=== PATIENT | male | born 1985 | race African-American/Black ===

== ENCOUNTER 2017-12-19 10:10 | Emergency (ER) | payer OTHER ==
[~2017-12-19] VITALS: Ht 182.9 cm; Wt 81.7 kg
[2017-12-19 11:00] LABS: HEMATOCRIT 47.3 % (42.0-52.0); HEMOGLOBIN 15.7 gm/dL (14.0-18.0); MCH 26.6 pg (26.0-34.0); MCHC 33.2 g/dL (28.0-37.0); MCV 80.2 fL (80.0-100.0); PLATELET COUNT 160 thou/uL (150-400); RBC 5.89 mil/uL (4.50-6.00); RDW 14.2 % (10.5-14.5); WBC 4.1 thou/uL (4.0-11.0)
[2017-12-19 11:06] LABS: CREATININE 1.2 mg/dL (0.7-1.3); POTASSIUM 4.5 mmol/L (3.5-5.1)
[2017-12-19 11:17] LABS: ABSOLUTE NEUTROPHILS 2.5 thou/uL (1.4-8.2)
[2017-12-19 11:18] LABS: ANISOCYTOSIS SLIGHT
== END 2017-12-19 11:41 | disposition home or self-care (01) ==
LOC: ER 10:10
PROVIDERS: Emergency Medicine
DX: B34.9 Viral infection, unspecified (principal); Z88.0 Allergy status to penicillin

== ENCOUNTER 2018-02-26 09:53 | Emergency (ER) | payer OTHER ==
[~2018-02-26] VITALS: Ht 182.9 cm; Wt 83.9 kg
--- NOTE | ~2018-02-26 | EKG ---
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
[2018-02-26] MEDS ORDERED: PROAIR HFA8.5 GM (10:02)
[2018-02-26 10:51] LABS: ABSOLUTE NEUTROPHILS 3.2 thou/uL (1.4-8.2); BASOPHILS 1.4 % (0.0-2.0); EOSINOPHILS 1.4 % (0.0-3.0); HEMATOCRIT 43.8 % (42.0-52.0); HEMOGLOBIN 14.4 gm/dL (14.0-18.0); LYMPHOCYTES 37.1 % (24.0-44.0); MCV 81.9 fL (80.0-100.0); MONOCYTES 6.4 % (1.0-8.0); PLATELET COUNT 182 thou/uL (150-400); POLYS 53.7 % (36.0-66.0); RBC 5.35 mil/uL (4.50-6.00); RDW 14.6 % (10.5-14.5); WBC 5.9 thou/uL (4.0-11.0)
[2018-02-26 11:00] LABS: ANION GAP 5 mmol/L (7-16); BUN 17 mg/dL (7-18); CALCIUM 8.8 mg/dL (8.5-10.1); CHLORIDE 105 mmol/L (98-107); CO2 30 mmol/L (21-32); CREATININE 0.9 mg/dL (0.7-1.3); GLUCOSE 88 mg/dL (74-106); POTASSIUM 3.9 mmol/L (3.5-5.1); SODIUM 140 mmol/L (136-145)
[2018-02-26 11:08] LABS: MAGNESIUM 1.7 mg/dL (1.8-2.4); SGOT 23 U/L (15-37); SGPT 36 U/L (30-65); TOTAL BILIRUBIN 0.3 mg/dL (<0.1-1.0); TOTAL PROTEIN 6.1 g/dL (6.4-8.2); TROPONIN-I < 0.04 ng/mL (<0.06)
[2018-02-26] MEDS ORDERED: ATIVAN0.5 MG PO (11:28)
[2018-02-26 12:11] VITALS: BP 126/74
== END 2018-02-26 12:13 | disposition home or self-care (01) ==
LOC: ER 09:53
PROVIDERS: Emergency Medicine
DX: J45.909 Unspecified asthma, uncomplicated (principal); F41.9 Anxiety disorder, unspecified; F17.210 Nicotine dependence, cigarettes, uncomplicated; Z88.0 Allergy status to penicillin

== ENCOUNTER 2019-01-23 12:01 | Emergency (ER) | payer OTHER ==
[~2019-01-23] VITALS: Ht 182.9 cm; Wt 97.1 kg
[~2019-01-23 12:01] MED LIST: ATIVAN0.5 MG PO; PROAIR HFA8.5 GM
[2019-01-23 13:07] LABS: URINE BILIRUBIN NEGATIVE (Negative); URINE BLOOD NEGATIVE (Negative); URINE CLARITY CLEAR; URINE COLOR YELLOW; URINE GLUCOSE-RANDOM* NEGATIVE (Negative); URINE KETONES NEGATIVE (Negative); URINE LEUKOCYTES-REFLEX NEGATIVE (Negative); URINE NITRITE-REFLEX NEGATIVE (Negative); URINE PROTEIN (DIPSTICK) NEGATIVE (Negative); URINE UROBILINOGEN 0.2 E.U./dl (0.2-1.0)
[2019-01-23 13:57] LABS: BASOPHILS 0.9 % (0.0-2.0); EOSINOPHILS 1.2 % (0.0-3.0); HEMATOCRIT 46.4 % (42.0-52.0); HEMOGLOBIN 15.3 gm/dL (14.0-18.0); LYMPHOCYTES 36.9 % (24.0-44.0); MCH 26.6 pg (26.0-34.0); MCHC 32.9 g/dL (28.0-37.0); MCV 80.9 fL (80.0-100.0); MONOCYTES 7.1 % (1.0-8.0); PLATELET COUNT 207 thou/uL (150-400); POLYS 53.9 % (36.0-66.0); RBC 5.73 mil/uL (4.50-6.00); RDW 14.5 % (10.5-14.5); WBC 5.6 thou/uL (4.0-11.0)
[2019-01-23 14:04] LABS: CALCIUM 9.1 mg/dL (8.5-10.1); CREATININE 0.9 mg/dL (0.7-1.3)
[2019-01-23 14:09] LABS: ALBUMIN 3.4 g/dL (3.4-5.0); TOTAL BILIRUBIN 0.3 mg/dL (<0.1-1.0)
[2019-01-23 14:17] VITALS: BP 125/84
[2019-01-23] MEDS ORDERED: NORFLEX100 MG PO (14:21)
[2019-01-23] MEDS ORDERED: NAPROSYN500 MG PO (14:21)
== END 2019-01-23 14:30 | disposition home or self-care (01) ==
LOC: ER 12:01
PROVIDERS: Emergency Medicine; Physician Assistant
DX: S39.012A Strain of muscle, fascia and tendon of lower back, initial encounter (principal); R10.9 Unspecified abdominal pain; F41.9 Anxiety disorder, unspecified; J45.909 Unspecified asthma, uncomplicated; Z88.0 Allergy status to penicillin; V89.2XXA Person injured in unspecified motor-vehicle accident, traffic, initial encounter; Y93.89 Activity, other specified; Y92.89 Other specified places as the place of occurrence of the external cause; Y99.8 Other external cause status

== ENCOUNTER 2019-12-03 11:34 | Emergency (ER) | payer OTHER ==
[~2019-12-03] VITALS: Ht 182.9 cm; Wt 97.5 kg
[~2019-12-03 11:34] MED LIST changes: +NAPROSYN500 MG PO; +NORFLEX100 MG PO
[2019-12-03 11:51] LABS: URINE BILIRUBIN NEGATIVE (Negative); URINE BLOOD NEGATIVE (Negative); URINE CLARITY CLEAR; URINE COLOR YELLOW; URINE GLUCOSE-RANDOM* NEGATIVE (Negative); URINE KETONES NEGATIVE (Negative); URINE LEUKOCYTES-REFLEX NEGATIVE (Negative); URINE NITRITE-REFLEX NEGATIVE (Negative); URINE PROTEIN (DIPSTICK) NEGATIVE (Negative); URINE SPECIFIC GRAVITY 1.015 (1.005-1.035); URINE UROBILINOGEN 0.2 E.U./dl (0.2-1.0)
[2019-12-03 12:19] LABS: HEMATOCRIT 46.2 % (42.0-52.0); HEMOGLOBIN 14.6 gm/dL (14.0-18.0); MCHC 31.7 g/dL (28.0-37.0); MCV 82.1 fL (80.0-100.0); PLATELET COUNT 225 thou/uL (150-400); RBC 5.63 mil/uL (4.50-6.00); RDW 15.1 % (10.5-14.5); WBC 6.4 thou/uL (4.0-11.0)
[2019-12-03 12:22] LABS: POTASSIUM 3.9 mmol/L (3.5-5.1)
[2019-12-03] MEDS ORDERED: NAPROSYN500 MG PO (12:56)
[2019-12-03 13:11] VITALS: BP 116/71
[2019-12-03 13:15] LABS: ABSOLUTE NEUTROPHILS 3.3 thou/uL (1.4-8.2); ANISOCYTOSIS 1+
== END 2019-12-03 13:12 | disposition home or self-care (01) ==
LOC: ER 11:34
PROVIDERS: Physician Assistant
DX: R30.0 Dysuria (principal); R10.30 Lower abdominal pain, unspecified; M54.9 Dorsalgia, unspecified; F41.9 Anxiety disorder, unspecified; J45.909 Unspecified asthma, uncomplicated; Z86.011 Personal history of benign neoplasm of the brain; Z88.0 Allergy status to penicillin